=== PATIENT | male | born 1970 | race Caucasian/White ===

== ENCOUNTER 2016-12-01 12:38 | Emergency (ER) | payer BC ==
[~2016-12-01] VITALS: Ht 160 cm; Wt 54.0 kg
[~2016-12-01 12:38] MED LIST: IBUP-1542 PO
[2016-12-01 12:42] VITALS: Ht 160 cm; Wt 54.0 kg
--- NOTE | 2016-12-01 13:19 | ERD ---
ER Documentation Chief Complaint Date/Time DATE: 12/01/16 TIME: 13:14 Chief Complaint LOWER BACK PAIN X 1 WEEK HPI 46-year-old male comes in with right-sided low back pain for the past week worsening after working. 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 He has not tried anything for this. Denies any trauma, saddle anesthesia or loss of bowel bladder function. Denies fevers, chills, chest pain or shortness of breath. ROS All systems reviewed and are negative except as per history of present illness. Medications Home Meds Active Scripts Ibuprofen* (Motrin*) 600 Mg Tab, 600 MG PO Q6, #30 TAB Prov:NINO BLANCO PA-C 12/01/16 Ibuprofen* (Motrin*) 600 Mg Tab, 600 MG PO Q8, #30 TAB Prov:MIYA JIMENEZ, [employer] 03/03/16 Allergies Allergies: Coded Allergies: No Known Allergy (Unverified , 03/03/16) PMhx/Soc Medical and Surgical Hx: pt denies Medical Hx, pt denies Surgical Hx Hx Alcohol Use: No Hx Substance Use: No Hx Tobacco Use: No Physical Exam Vitals Vital Signs Date Time Temp Pulse Resp B/P Pulse Ox O2 Delivery O2 Flow Rate FiO2 12/01/16 12:42 98.2 76 18 144/78 100 Physical Exam General: Well-developed, well-nourished. The patient appears in no acute distress. HEENT: Head is normocephalic, atraumatic. No scleral icterus. Neck: Supple. Nontender. Lungs: Clear to auscultation. Normal air movement. Heart: Regular rate and rhythm. S1 and S2 are normal. No murmurs, gallops, or rubs. Abdomen: Soft, nontender, nondistended. Bowel sounds are normoactive. Back: No midline tenderness over the call, no rashes, there is sacroiliac tenderness on the right side with palpation. Strength to lower extremities 5 out of 5 bilaterally. Extremities: No clubbing or cyanosis. Normal pulses. Moving extremities x 4. No weakness. Neurologic: Alert and oriented 3. No focal deficits. Skin: Normal turgor. No rash or lesions. Results 24 hrs Current Medications Medications (Trade) Dose Ordered Sig/Amy Route PRN Reason Start Time Stop Time Status Last Admin Dose Admin Ibuprofen (Motrin) 600 mg ONCE ONCE PO 12/01/16 13:30 12/01/16 13:31 DC 12/01/16 13:19 PROCEDURE: XR Pelvis 1 View. CLINICAL INDICATION: Pelvic pain. TECHNIQUE: Single AP view of the pelvis. COMPARISON: No prior studies are available for comparison. FINDINGS: The osseous structures are intact. No destructive bony lesions are observed. The interosseous spaces are unremarkable. A few phleboliths are seen in the right pelvis. IMPRESSION: Unremarkable pelvis. If further characterization is needed CT or MRI could be helpful. If there is high clinical suspicion for traumatic injury, further evaluation with CT should be considered. RPTAT: AA .Jorgito Myers MD, Date Time Electronically viewed and signed by .Jorgito Myers MD, on 12/01/2016 13:51 .P/ CC: NINO BLANCO PA-C Procedures/MDM 46-year-old male comes in with right sided low back pain for the past 1 week worsening after driving. Pain is reproduced at the sacroiliac region, there is no evidence of a fracture. Patient's low back is unremarkable. His pain is likely from a sprain, musculoskeletal and will be treated with anti- inflammatories. Departure Diagnosis: Primary Impression: Sacroiliac (ligament) sprain NINO BLANCO PA-C Dec 01, 2016 13:18
[2016-12-01] MEDS ORDERED: IBUPROFEN 600 MG TAB PO ONE (13:30)
--- NOTE | 2016-12-01 13:51 | RADRPT ---
PROCEDURE: XR Pelvis 1 View. CLINICAL INDICATION: Pelvic pain. TECHNIQUE: Single AP view of the pelvis. COMPARISON: No prior studies are available for comparison. FINDINGS: The osseous structures are intact. No destructive bony lesions are observed. The interosseous spac es are unremarkable. A few phleboliths are seen in the right pelvis. IMPRESSION: Unremarkable pelvis. If further characterization is needed CT or MRI could be helpful. If there is high clinical suspicion for traumatic injury, further evaluation with CT should be consi dered. RPTAT: AA .Jorgito Myers MD, MD Date Time Electronically viewed and signed by .Jorgito Myers MD, MD on 12/01/2016 13:51 .P/
[2016-12-01] MEDS ORDERED: IBUP-1542 PO (14:12)
== END 2016-12-01 14:30 | disposition home or self-care (01) ==
LOC: FTE 12:38
DX: S33.6XXA Sprain of sacroiliac joint, initial encounter (principal); X50.9XXA Other and unspecified overexertion or strenuous movements or postures, initial encounter; Y92.9 Unspecified place or not applicable
CPT/HCPCS: 72170; 99283; Z7610